=== PATIENT | male | born 1945 | race Caucasian/White ===

== ENCOUNTER 2022-09-30 09:40 | Emergency (ER) | payer OTHER ==
[~2022-09-30] VITALS: Ht 177.8 cm; Wt 86.2 kg
--- NOTE | 2022-09-30 09:44 | NUR ---
BIBA TO BED 6
[2022-09-30 09:45] VITALS: BP 118/66
--- NOTE | 2022-09-30 10:00 | NUR ---
76 y/o male alisa from [facility], pt was dropped off at [facility] for dialysis (unknown days, last done not done today). transport (personal care transport) dropped pt off at wrong facility, pt was left in wheelchair in the lobby, staff called [facility] stating pt may be altered. pt gcs 14, answers a&ox4. per [facility], pt baseline is slightly aggrivated and confused. pt normally goes to [facility]. facility requested to be transferred to [facility], [facility] denied pt states they need to go to closest facility. pt states he has 5/10 buttock pain. spoke with archana garcia from [facility] for report. pmh: thyroid disease, htn allergies: nka med: metoprolol ER, ativan, seroquel, levothyroxine
--- NOTE | 2022-09-30 10:08 | NUR ---
Patient noted to have existing wounds upon arrival to ER. Physician informed. pt c/o pain on buttocks 02/11, pt was turned to inspect area, pt has stage 1 ulcer on buttocks per md.
--- NOTE | 2022-09-30 10:10 | NUR ---
called report to Quentin DOE about clinical findings, pt will be [place] [facility] [place] [facility].
--- NOTE | 2022-09-30 10:18 | NUR ---
[facility] will fruit picker machine operator ETA 30 minutes
--- NOTE | 2022-09-30 10:40 | NUR ---
[facility] AT BEDSIDE FOR TX
[2022-09-30 10:46] VITALS: BP 118/66
--- NOTE | 2022-09-30 10:46 | NUR ---
Patient discharged with v/s stable. Written and verbal after care instructions given and explained. . [facility] TX PROVIDED to care home. All questions addressed prior to discharge. Advised to follow up with PMD. FACILITY AWARE OF PT DC/ETA.
== END 2022-09-30 10:44 ==
LOC: MED 09:40
DX: N18.6 End stage renal disease (principal); L89.159 Pressure ulcer of sacral region, unspecified stage; R41.82 Altered mental status, unspecified; R41.0 Disorientation, unspecified; I10 Essential (primary) hypertension; E03.9 Hypothyroidism, unspecified; Z99.2 Dependence on renal dialysis
CPT/HCPCS: 99283

== ENCOUNTER 2022-11-15 14:56 | Inpatient (IN) | payer OTHER ==
[~2022-11-15] VITALS: Ht 177.8 cm; Wt 69.6 kg
[~2022-11-15 14:56] MED LIST: FOLIC ACID 1 MG TAB PO ONE
[2022-11-15 15:03] VITALS: BP 151/86
--- NOTE | 2022-11-15 15:40 | NUR ---
76M BIBA from [facility] with c/o abnormal labs. EMS reports pt received and completed dialysis today. Blood exam showed low Hgb reading. Pt AOx1 to name, pt breathing normal and even and unlabored. Pt placed on bedside monitor, changed into gown, bed set to lowest position, side rails x2. Pt received dialysis Tues/Th/Sat. Dr. Moon made aware of pt upon arrival.
--- NOTE | 2022-11-15 15:45 | NUR ---
Lab at bedside.
[2022-11-15 16:16] LABS: BASOPHILS # (AUTO) 0.1 K/uL (0.00-0.22); BASOPHILS % (AUTO) 0.8 % (0.0-2.0); EOSINOPHILS # (AUTO) 0.1 K/uL (0-0.4); EOSINOPHILS % (AUTO) 1.5 % (0.0-4.0); LYMPHOCYTES # (AUTO) 1.4 K/uL (2.0-11.5); LYMPHOCYTES % (AUTO) 14.3 % (20.5-51.1); MEAN CORPUSCULAR HEMOGLOBIN 29 pg (27-31); MEAN CORPUSCULAR HGB CONC 32 g/dL (33-37); MEAN CORPUSCULAR VOLUME 90.4 fL (80-94); MONOCYTES # (AUTO) 0.5 K/uL (0.8-1.0); MONOCYTES % (AUTO) 5.4 % (1.7-9.3); NEUTROPHILS # (AUTO) 7.6 K/uL (1.8-7.7); PLATELET COUNT (AUTO) 333 K/uL (140-450); RED BLOOD CELL COUNT(AUTO) 2.32 MIL/uL (4.20-6.10); RED CELL DISTRIBUTION WIDTH 17.7 % (11.6-13.7); WHITE BLOOD COUNT (AUTO) 9.8 K/uL (4.8-10.8)
[2022-11-15 16:20] LABS: HEMOGLOBIN 6.7 g/dL (12.0-18.0)
[2022-11-15 16:35] LABS: ANION GAP 9.5 (8-16); CARBON DIOXIDE 32.4 mmol/L (21-32); CHLORIDE 98 mmol/L (98-107); GLUCOSE 89 mg/dL (74-106); POTASSIUM 3.9 mmol/L (3.5-5.1); SODIUM SERUM 136 mmol/L (136-145); UREA NITROGEN, BLOOD 22 mg/dL (7-18)
--- NOTE | 2022-11-15 17:30 | NUR ---
Verbal consent obtained from Ashley Adair (daughter and legal decisionmaker), via telephone, for blood transfusion. Alfredo Dumont RN confirmed consent.
[2022-11-15] MEDS ORDERED: FOLIC ACID 1 MG TAB PO ONE (18:05)
[2022-11-15] MEDS ORDERED: QUET25TA PO (18:14)
[2022-11-15] MEDS ORDERED: ATI.5 PO (18:14)
[2022-11-15] MEDS ORDERED: METO100T14 PO (18:14)
[2022-11-15] MEDS ORDERED: METO50TE2 PO (18:14)
[2022-11-15] MEDS ORDERED: SYN.05 PO (18:14)
--- NOTE | 2022-11-15 18:26 | NUR ---
Patient will be admitted to care of Dr. Mooney. Admited to TELE. Will go to room 106A. Belongings list completed. Report to NADER Whitmore.
[2022-11-15 18:40] VITALS: BP 160/89
--- NOTE | 2022-11-15 19:15 | NUR ---
RECEIVED PT FROM DAY RN FOR CONTINUITY OF CARE. PT ASLEEP, AROUSABLE TO NAME. ON ROOM AIR, BREATHING EVEN AND UNLABORED. IN ON L WRIST G20, SL. REDNESS ON L BUTTOCK NOTED. PICTURE TAKEN. MRSA SWAB DONE. ALL PRECAUTIONS IN PLACE. CALL LIGHT IN PLACE. CALL LIGHT WITHIN REACH. WILL CONTINUE TO MONITOR.
--- NOTE | 2022-11-15 21:30 | NUR ---
BLOOD TRANSFUSION STARTED. NO ACUTE REACTION NOTED. WILL CONTINUE TO MONITOR.
[2022-11-16] VITALS: BP 154/87
--- NOTE | 2022-11-16 00:30 | NUR ---
BLOOD TRANSFUSION DONE. NO REACTION NOTED. WILL CONTINUE TO MONITOR.
[2022-11-16 03:09] LABS: HEMOGLOBIN 7.8 g/dL (12.0-18.0)
[2022-11-16 03:10] LABS: BASOPHILS % (AUTO) 0.3 % (0.0-2.0); EOSINOPHILS # (AUTO) 0.1 K/uL (0-0.4); EOSINOPHILS % (AUTO) 1.4 % (0.0-4.0); HEMATOCRIT 24.2 % (36-52); HEMOGLOBIN 7.7 g/dL (12.0-18.0); LYMPHOCYTES # (AUTO) 1.3 K/uL (2.0-11.5); LYMPHOCYTES % (AUTO) 12.4 % (20.5-51.1); MEAN CORPUSCULAR HEMOGLOBIN 28 pg (27-31); MEAN CORPUSCULAR HGB CONC 32 g/dL (33-37); MEAN CORPUSCULAR VOLUME 88.9 fL (80-94); MONOCYTES # (AUTO) 0.7 K/uL (0.8-1.0); MONOCYTES % (AUTO) 6.7 % (1.7-9.3); NEUTROPHILS # (AUTO) 8.4 K/uL (1.8-7.7); NEUTROPHILS % (AUTO) 79.2 % (42.2-75.2); PLATELET COUNT (AUTO) 354 K/uL (140-450); RED BLOOD CELL COUNT(AUTO) 2.72 MIL/uL (4.20-6.10); RED CELL DISTRIBUTION WIDTH 17.1 % (11.6-13.7); WHITE BLOOD COUNT (AUTO) 10.6 K/uL (4.8-10.8)
[2022-11-16 04:00] VITALS: BP 148/77
[2022-11-16] MEDS: LEVOTHYROXINE 0.05 MG TAB PO SCH (06:18)
--- NOTE | 2022-11-16 06:55 | NUR ---
PT IS STABLE. NO ACUTE EVENTS THROUGHOUT THE NIGHT. NO S/SX OF DISTRESS NOTED. ALL NEEDS ATTENDED. NO PRECAUTIONS IN PLACE. CALL LIGHT WITHIN REACH. WILL ENDORSE TO DAY SHIFT NURSE.
--- NOTE | 2022-11-16 07:30 | NUR ---
RECIEVED PATIENT FROM SPECIAL WARFARE BOAT OPERATOR NURSE,PATIENT IS ALERT TIMES 1 AT BASELINE,VITALS ARE STABLE.ALL SAFETY MEASURES IN PLACE.POC DISCUSSED.WILL CONTINUE TO MONITOR.
[2022-11-16 07:52] LABS: BASOPHILS # (AUTO) 0.1 K/uL (0.00-0.22); BASOPHILS % (AUTO) 0.7 % (0.0-2.0); EOSINOPHILS # (AUTO) 0.1 K/uL (0-0.4); EOSINOPHILS % (AUTO) 1.2 % (0.0-4.0); HEMATOCRIT 24.5 % (36-52); HEMOGLOBIN 7.6 g/dL (12.0-18.0); LYMPHOCYTES # (AUTO) 1.7 K/uL (2.0-11.5); MEAN CORPUSCULAR HEMOGLOBIN 28 pg (27-31); MEAN CORPUSCULAR HGB CONC 31 g/dL (33-37); MEAN CORPUSCULAR VOLUME 89.4 fL (80-94); MONOCYTES # (AUTO) 0.8 K/uL (0.8-1.0); MONOCYTES % (AUTO) 7.1 % (1.7-9.3); NEUTROPHILS # (AUTO) 9.1 K/uL (1.8-7.7); PLATELET COUNT (AUTO) 372 K/uL (140-450); RED BLOOD CELL COUNT(AUTO) 2.74 MIL/uL (4.20-6.10); RED CELL DISTRIBUTION WIDTH 17.6 % (11.6-13.7); WHITE BLOOD COUNT (AUTO) 11.8 K/uL (4.8-10.8)
[2022-11-16 08:00] VITALS: BP 121/84
[2022-11-16] MEDS: LORazepam 0.5 MG TAB PO SCH ×2 (08:26→20:57)
[2022-11-16] MEDS: FERROUS SULFATE 300 MG/5 ML UDC PO SCH (08:26)
[2022-11-16 11:41] LABS: BASOPHILS # (AUTO) 0.1 K/uL (0.00-0.22); BASOPHILS % (AUTO) 0.5 % (0.0-2.0); EOSINOPHILS # (AUTO) 0.1 K/uL (0-0.4); EOSINOPHILS % (AUTO) 1.1 % (0.0-4.0); HEMATOCRIT 25.6 % (36-52); HEMOGLOBIN 8.1 g/dL (12.0-18.0); LYMPHOCYTES % (AUTO) 15.3 % (20.5-51.1); MEAN CORPUSCULAR HEMOGLOBIN 28 pg (27-31); MEAN CORPUSCULAR HGB CONC 32 g/dL (33-37); MEAN CORPUSCULAR VOLUME 88.7 fL (80-94); MONOCYTES % (AUTO) 7.6 % (1.7-9.3); NEUTROPHILS # (AUTO) 9.8 K/uL (1.8-7.7); NEUTROPHILS % (AUTO) 75.5 % (42.2-75.2); PLATELET COUNT (AUTO) 370 K/uL (140-450); RED BLOOD CELL COUNT(AUTO) 2.88 MIL/uL (4.20-6.10); RED CELL DISTRIBUTION WIDTH 17.3 % (11.6-13.7)
[2022-11-16 12:00] VITALS: BP 155/95
--- NOTE | 2022-11-16 12:41 | NUR ---
FREQUENT ROUNDS DONE,VISITORS AT BEDSIDE.ALL SAFETY MEASURES IN PLACE.NO SO DISTRESS NOTED.WILL CONTINUE TO MONITOR.
[2022-11-16] MEDS ORDERED: hydrALAZINE 25 MG TAB PO PRN (15:35)
[2022-11-16 15:48] LABS: BASOPHILS # (AUTO) 0.1 K/uL (0.00-0.22); BASOPHILS % (AUTO) 0.4 % (0.0-2.0); EOSINOPHILS # (AUTO) 0.2 K/uL (0-0.4); EOSINOPHILS % (AUTO) 1.3 % (0.0-4.0); HEMATOCRIT 22.2 % (36-52); HEMOGLOBIN 7.1 g/dL (12.0-18.0); LYMPHOCYTES # (AUTO) 1.5 K/uL (2.0-11.5); MEAN CORPUSCULAR HEMOGLOBIN 28 pg (27-31); MEAN CORPUSCULAR HGB CONC 32 g/dL (33-37); MEAN CORPUSCULAR VOLUME 88.1 fL (80-94); MONOCYTES # (AUTO) 0.8 K/uL (0.8-1.0); MONOCYTES % (AUTO) 7.1 % (1.7-9.3); NEUTROPHILS # (AUTO) 9.3 K/uL (1.8-7.7); NEUTROPHILS % (AUTO) 78.2 % (42.2-75.2); PLATELET COUNT (AUTO) 356 K/uL (140-450); RED BLOOD CELL COUNT(AUTO) 2.52 MIL/uL (4.20-6.10); WHITE BLOOD COUNT (AUTO) 11.9 K/uL (4.8-10.8)
[2022-11-16 16:00] VITALS: BP 164/103
[2022-11-16] MEDS ORDERED: LABETALOL 20 MG/4 ML VIAL IVP PRN (16:00)
--- NOTE | 2022-11-16 16:14 | NUR ---
NOTED HIGH SYSTOLIC BP OF 164/103.REPEAT BP VALUE IS 175/107.NOTIFIED MD AND MEDICATED WITH PRN BP MEDS.WILL REASSESS.MNURSS1
--- NOTE | 2022-11-16 19:09 | NUR ---
ENDORSED THE PATIENT TO EMPLOYMENT TRAINING SPECIALIST NURSE FOR CONTINUITY OF CARE.NO SIGNS OF DISTRESS NOTED.
[2022-11-16 19:58] LABS: BASOPHILS % (AUTO) 0.3 % (0.0-2.0); EOSINOPHILS # (AUTO) 0.2 K/uL (0-0.4); EOSINOPHILS % (AUTO) 1.4 % (0.0-4.0); HEMATOCRIT 22.4 % (36-52); HEMOGLOBIN 7.1 g/dL (12.0-18.0); LYMPHOCYTES # (AUTO) 1.4 K/uL (2.0-11.5); MEAN CORPUSCULAR HEMOGLOBIN 28 pg (27-31); MEAN CORPUSCULAR HGB CONC 32 g/dL (33-37); MEAN CORPUSCULAR VOLUME 88.5 fL (80-94); MONOCYTES # (AUTO) 0.9 K/uL (0.8-1.0); MONOCYTES % (AUTO) 7.4 % (1.7-9.3); NEUTROPHILS # (AUTO) 10.2 K/uL (1.8-7.7); NEUTROPHILS % (AUTO) 79.9 % (42.2-75.2); PLATELET COUNT (AUTO) 362 K/uL (140-450); RED BLOOD CELL COUNT(AUTO) 2.54 MIL/uL (4.20-6.10); RED CELL DISTRIBUTION WIDTH 16.8 % (11.6-13.7); WHITE BLOOD COUNT (AUTO) 12.7 K/uL (4.8-10.8)
[2022-11-16 20:00] VITALS: BP 134/69
--- NOTE | 2022-11-16 20:00 | NUR ---
RECEIVED PT FROM DAY RN FOR CONTINUITY OF CARE. PT awake, alert and oriented to name only. ON ROOM AIR, BREATHING EVEN AND UNLABORED.NO S/SX OF DISTRESS AT THIS MOMENT. IV ON L WRIST G20, SL. ALL PRECAUTIONS IN PLACE. CALL LIGHT IN PLACE. CALL LIGHT WITHIN REACH. WILL CONTINUE TO MONITOR.
[2022-11-16 20:19] LABS: HEMATOCRIT 22.2 % (36-52); HEMOGLOBIN 7.1 g/dL (12.0-18.0)
[2022-11-16] MEDS ORDERED: CRUSHER, PILL MC ONE (20:51)
[2022-11-16] MEDS: METOPROLOL SUCCINATE 50 MG TABER PO SCH (20:56)
[2022-11-16] MEDS: QUEtiapine FUMARATE 25 MG TAB PO SCH (20:57)
--- NOTE | 2022-11-16 21:00 | NUR ---
SCHEDULED MEDICATIONS GIVEN. NO ADVERSE DRUG REACTION NOTED.PT TOLERATED WELL. WILL CONTINUE TO MONITOR.
--- NOTE | 2022-11-16 23:43 | NUR ---
PT ASLEEP. NO S/SX OF DISTRESS. BREATHING EVEN AND UNLABORED. ALL PRECAUTIONS IN PLACE. CALL LIGHT WITHIN REACH. WILL CONTINUE TO MONITOR.
[2022-11-17] VITALS: BP 152/82
[2022-11-17 04:00] VITALS: BP 148/90
[2022-11-17 05:24] LABS: BASOPHILS % (AUTO) 0.2 % (0.0-2.0); EOSINOPHILS # (AUTO) 0.2 K/uL (0-0.4); EOSINOPHILS % (AUTO) 1.5 % (0.0-4.0); HEMATOCRIT 22.3 % (36-52); LYMPHOCYTES # (AUTO) 1.6 K/uL (2.0-11.5); LYMPHOCYTES % (AUTO) 13.1 % (20.5-51.1); MEAN CORPUSCULAR HEMOGLOBIN 28 pg (27-31); MEAN CORPUSCULAR HGB CONC 32 g/dL (33-37); MEAN CORPUSCULAR VOLUME 88.6 fL (80-94); MONOCYTES # (AUTO) 0.9 K/uL (0.8-1.0); MONOCYTES % (AUTO) 7.6 % (1.7-9.3); NEUTROPHILS # (AUTO) 9.1 K/uL (1.8-7.7); NEUTROPHILS % (AUTO) 77.6 % (42.2-75.2); PLATELET COUNT (AUTO) 360 K/uL (140-450); RED BLOOD CELL COUNT(AUTO) 2.51 MIL/uL (4.20-6.10); RED CELL DISTRIBUTION WIDTH 17.2 % (11.6-13.7); WHITE BLOOD COUNT (AUTO) 11.8 K/uL (4.8-10.8)
[2022-11-17] MEDS: LEVOTHYROXINE 0.05 MG TAB PO SCH (06:26)
[2022-11-17 08:00] VITALS: BP 155/98
--- NOTE | 2022-11-17 08:56 | NUR ---
PATIENT HAS BEEN SCREENED AND CATEGORIZED MODERATE NUTRITION RISK. PATIENT WILL BE SEEN WITHIN 3-5 DAYS OF ADMISSION. REVIEWED BY JANESSA LIU RD
[2022-11-17] MEDS ORDERED: EPOETIN ALFA-EPBX 10,000 UNITS/ML VIAL IV SCH (09:00)
--- NOTE | 2022-11-17 09:40 | NUR ---
WOUND CARE NOTE: SKIN ASSESSMENT DONE ON THIS PT ADMITTED WITH SKIN ALTERATION. POC DISCUSSED WITH PRIMARY NADER BAIRD. PER INFORMATION, PT IS RESTLESS AND NOT COOPERATE WITH CARE. PT.SKIN ASSESSED, PT IS ON/OFF RESTLESS ABLE TO FOLLOW DIRECTIONS WITH ASSISTANCE OF TWO PERSONS TO TURN AND REPOSITION. PT. SKIN DRY THIN AND EASILY TO TORN. SACRALCOCCYX SKIN THIN TO TORN WITH LOWER EDGE OF SACRAL AND BILATERAL LOWER BUTTOCKS NON-BLANCHABLE REDNESS ,IRREGULAR SHAPE 2X5CM. POC DISCUSSED WITH PRIMARY NADER BAIRD. PT. WITH LOW IVAN SCALE AT MODERATE TO HIGH RISK, CONTINUE TO FOLLOW PRESSURE INJURY PREVENTION INTERVENTIONS. -APPLY HYDRAGUARD TO TRUNK OF BODY, SACRALCOCCYX BID -APPLY FOAM DRESSING TO SACRALCOCCYX AND LOWER BUTTOCKS QD AND PRN IF SOILING. OFFLOAD AREA WITH PILLOW. -POSITIONING: TURN AND REPOSITION PATIENT Q 2H OR SOONER USE PILLOWS TO KEEP BONY PROMINENCES FROM DIRECT CONTACT WITH SURFACES USE REPOSITIONING WEDGES TO PROVIDE 30-DEGREE ANGLE FOR SIDE LYING POSITIONS OFFLOADING OR FOAM DRESSING TO ALL TUBING TO PREVENT MEDICAL DEVICES RELATED PRESSURE INJURY -RE-EVALUATING AND MANAGING INCONTINENCE MONITOR SKIN CONDITION DURING POSITION CHANGE DO NOT MASSAGE REDNESS, BONY PROMINENCES FREQUENT KAR-CARE AND PROVIDE BARRIER CREAMS PRN IF SOILING MOISTURE CONTROL BY OFFER BED ROBERTSON/URINAL /ABSORBENT PAD TO WICK AND HOLD MOISTURE KEEP SKIN DRY AND PROTECT FROM FRICTION -MANAGE FRICTION/SHEAR/MOBILITY KEEP HOB AT THE LOWEST LEVEL OF ELEVATION NO MORE THAN 30 DEGREE UNLESS OTHERWISE CONTRAINDICATED USE LIFT SHEET OR TRANSFER DEVICE TO MOVE PATIENT AND PREVENT LATERAL SHEER. PROTECT HEELS, ELBOWS BONY PROMINENCES WITH SKIN BERRIES OR FOAM DRESSING IF EXPOSED TO FRICTION OFFLOAD BILATERAL HEELS BY PLACING PILLOWS UNDER CALVES AT ALL TIMES, UNLESS OTHERWISE CONTRAINDICATED -PRESSURE REDISTRIBUTION SURFACE THERAPY ALFONSO ISOFLEX MATTRESS -NUTRITION: PLEASE FOLLOW RD RECOMMENDATIONS AND OFFER NUTRITION SUPPLEMENTS IF ORDERED. PLEASE CONTACT WOUND CARE NURSE FOR ANY QUESTION AND CHANGE OF WOUND CONDITION.
[2022-11-17] MEDS: PANTOPRAZOLE 40 MG INJ VIAL IVP SCH (09:43)
[2022-11-17] MEDS: LORazepam 0.5 MG TAB PO SCH ×2 (09:47→20:14)
[2022-11-17] MEDS: FERROUS SULFATE 300 MG/5 ML UDC PO SCH (09:48)
[2022-11-17 12:00] VITALS: BP 157/101
[2022-11-17 16:00] VITALS: BP 158/89
--- NOTE | 2022-11-17 16:29 | NUR ---
DC PLANNING ASSESSMENT COMPLETE SEE ASSESSMENT FOR DETAILS TENTATIVE DC PLAN IS FOR PT TO RETURN TO [facility] FOR SKILLED CARE, ONCE MEDICALLY STABLE. Addendum: 11/17/22 at 1629 by Arash PRAKASH Amended: Links added.
[2022-11-17] MEDS: SENNA 8.6 MG TAB PO SCH (17:06)
--- NOTE | 2022-11-17 19:27 | NUR ---
RECEIVED PT IN ASLEEP, EASILY AROUSABLE BY VERBAL STIMULI. NO S/SX OF PAIN NOR DISCOMFORT. NO ACUTE RESPIRATORY DISTRESS. SKIN WARM AND DRY TO TOUCH. SAFETY PRECAUTION IN PLACE, CALL LIGHT IN REACH.
[2022-11-17 19:53] LABS: BASOPHILS # (AUTO) 0.1 K/uL (0.00-0.22); BASOPHILS % (AUTO) 0.7 % (0.0-2.0); EOSINOPHILS # (AUTO) 0.1 K/uL (0-0.4); HEMATOCRIT 21.7 % (36-52); LYMPHOCYTES # (AUTO) 1.7 K/uL (2.0-11.5); LYMPHOCYTES % (AUTO) 13.4 % (20.5-51.1); MEAN CORPUSCULAR HEMOGLOBIN 29 pg (27-31); MEAN CORPUSCULAR HGB CONC 32 g/dL (33-37); MEAN CORPUSCULAR VOLUME 88.3 fL (80-94); MONOCYTES # (AUTO) 0.8 K/uL (0.8-1.0); MONOCYTES % (AUTO) 6.5 % (1.7-9.3); NEUTROPHILS # (AUTO) 9.9 K/uL (1.8-7.7); NEUTROPHILS % (AUTO) 78.4 % (42.2-75.2); PLATELET COUNT (AUTO) 353 K/uL (140-450); RED BLOOD CELL COUNT(AUTO) 2.45 MIL/uL (4.20-6.10); RED CELL DISTRIBUTION WIDTH 16.7 % (11.6-13.7); WHITE BLOOD COUNT (AUTO) 12.7 K/uL (4.8-10.8)
[2022-11-17 20:00] VITALS: BP 140/79
[2022-11-17] MEDS: QUEtiapine FUMARATE 25 MG TAB PO SCH (20:14)
[2022-11-17] MEDS: METOPROLOL SUCCINATE 50 MG TABER PO SCH (20:14)
--- NOTE | 2022-11-17 20:35 | NUR ---
SPOKE WITH DAUGHTER LESLIE, GAVE CONSENT FOR HD , 2NR RN WITNESSED BY YASMIN.
--- NOTE | 2022-11-17 21:02 | NUR ---
SPOKE WITH [facility] EMERGENCY MEDICINE NURSE PRACTITIONER, MADE AWARE OF HD ORDER FOR AM.
--- NOTE | 2022-11-17 22:00 | NUR ---
REPOSITIONED PATIENT. HEAD OF THE BED ELEVATED. CALL LIGHT IN REACH.
[2022-11-18] VITALS: BP 142/89
--- NOTE | 2022-11-18 01:30 | NUR ---
PATIENT IS ASLEEP. NO S/SX OF DISTRESS. CALL LIGHT IN REACH.
[2022-11-18 04:00] VITALS: BP 159/86
[2022-11-18] MEDS: LEVOTHYROXINE 0.05 MG TAB PO SCH (05:38)
--- NOTE | 2022-11-18 05:45 | NUR ---
AM CARE RENDERED. MADE COMFORTABLE IN BED. CALL LIGHT PLACED WITHIN REACH.
--- NOTE | 2022-11-18 06:18 | NUR ---
PATIENT IS ASLEEP. NO DISTRESS NOTED. ALL NEEDS ATTENDED TO. SAFETY PRECAUTIONS MAINTAINED DURING THE SHIFT, CALL LIGHT REMAINS WITHIN REACH.
--- NOTE | 2022-11-18 06:18 | NUR ---
PATIENT IS ASLEEP. NO DISTRESS NOTED. ALL NEEDS ATTENDED TO. SAFETY PRECAUTIONS MAINTAINED DURING THE SHIFT, CALL LIGHT REMAINS WITHIN REACH.
--- NOTE | 2022-11-18 07:30 | NUR ---
RECEIVED REPORT FROM LIVERY CAR DRIVER NURSE FOR CONTINUITY OF CARE, POC DISCUSSED. PT IS ASLEEP IN BED WITH CHEST RISING AND FALLING EVEN AND UNLABORED. PT ON RA, ON TELE SHOWING SINUS TACH. ALL SAFETY MEASURES IN PLACE, CALL LIGHT WITHIN REACH. WILL CONTINUE TO MONITOR.
[2022-11-18] MEDS ORDERED: INSULIN LISPRO SLIDING SCALE 100 UNITS/ML VIAL SUBQ PRN (07:50)
[2022-11-18] MEDS ORDERED: DEXTROSE 50% 50 ML SYR IVP PRN (07:50)
[2022-11-18 08:00] VITALS: BP 148/93
[2022-11-18] MEDS: PANTOPRAZOLE 40 MG INJ VIAL IVP SCH (08:21)
[2022-11-18] MEDS: NIFEdipine 30 MG TABER PO SCH (08:21)
[2022-11-18] MEDS: LORazepam 0.5 MG TAB PO SCH ×2 (08:21→20:13)
[2022-11-18] MEDS: FERROUS SULFATE 300 MG/5 ML UDC PO SCH (08:26)
[2022-11-18] MEDS: SENNA 8.6 MG TAB PO SCH ×3 (08:28→16:55)
--- NOTE | 2022-11-18 09:00 | NUR ---
SHERIF MEDICATION ADMINISTERED PER MD ORDER, PT TOLERATED ADMINISTRATION. PT A&OX1, ABLE TO OPEN EYES UPON REQUEST. CLEAR LUNG SOUNDS ON RA, ACTIVE BOWEL SOUNDS, +1 EDEMA. CLOSED PRESSURE ULCER ON SACRAL. ALL SAFETY MEASURES IN PLACE, CALL LIGHT WITHIN REACH. WILL CONTINUE TO MONITOR.
[2022-11-18 09:18] LABS: BASOPHILS % (AUTO) 0.4 % (0.0-2.0); EOSINOPHILS # (AUTO) 0.2 K/uL (0-0.4); EOSINOPHILS % (AUTO) 1.9 % (0.0-4.0); HEMATOCRIT 21.8 % (36-52); LYMPHOCYTES # (AUTO) 1.5 K/uL (2.0-11.5); LYMPHOCYTES % (AUTO) 11.8 % (20.5-51.1); MEAN CORPUSCULAR HEMOGLOBIN 28 pg (27-31); MEAN CORPUSCULAR HGB CONC 31 g/dL (33-37); MEAN CORPUSCULAR VOLUME 88.6 fL (80-94); MONOCYTES # (AUTO) 0.9 K/uL (0.8-1.0); MONOCYTES % (AUTO) 7.4 % (1.7-9.3); NEUTROPHILS # (AUTO) 9.9 K/uL (1.8-7.7); NEUTROPHILS % (AUTO) 78.5 % (42.2-75.2); PLATELET COUNT (AUTO) 348 K/uL (140-450); RED BLOOD CELL COUNT(AUTO) 2.47 MIL/uL (4.20-6.10); RED CELL DISTRIBUTION WIDTH 16.7 % (11.6-13.7); WHITE BLOOD COUNT (AUTO) 12.7 K/uL (4.8-10.8)
[2022-11-18 09:22] LABS: HEMOGLOBIN 6.9 g/dL (12.0-18.0)
[2022-11-18 10:00] LABS: CHLORIDE 99 mmol/L (98-107); GLUCOSE 77 mg/dL (74-106); POTASSIUM 4.4 mmol/L (3.5-5.1); SODIUM SERUM 136 mmol/L (136-145)
[2022-11-18 10:06] LABS: ANION GAP 14.7 (8-16); CARBON DIOXIDE 26.7 mmol/L (21-32)
[2022-11-18 10:22] LABS: CREATININE 4.9 mg/dL (0.6-1.3); UREA NITROGEN, BLOOD 62 mg/dL (7-18)
--- NOTE | 2022-11-18 11:05 | NUR ---
UPDATE PROVIDED TO PTS DAUGHTER, KRYSTAL. ALL QUESTIONS ANSWERED.
[2022-11-18] MEDS: BLOOD GLUCOSE MONITORING 1 DEV DEV FS SCH ×3 (11:19→20:17)
--- NOTE | 2022-11-18 11:19 | NUR ---
BLOOD GLUCOSE IS 97, NO INSULIN COVERAGE NEEDED PER SLIDING SCALE
--- NOTE | 2022-11-18 11:30 | NUR ---
CALLED LAB TO RECEIVE BLOOD FOR BLOOD TRANSFUSION. ASSISTANT EDITOR STATES THEY ARE STILL WORKING ON IT. HD NURSE AT BEDSIDE STARTING ORDERED DIALYSIS SESSION. PT STABLE
[2022-11-18] MEDS: SODIUM FERRIC GLUCONATE 125 MG in NACL 0.9% 100 ML IV SCH ×2 (11:41→15:13)
--- NOTE | 2022-11-18 11:49 | NUR ---
SHERIF IV MEDICATION BEING HELD DUE TO HD GOING ON , PER HD NURSE IT WILL NEED TO BE GIVEN AFTER DIALYSIS
--- NOTE | 2022-11-18 13:00 | NUR ---
PT SWATS AT NURSE WHILE TRYING TO GIVE PO MEDICATION, EYES CLOSED, LETHARGIC.
--- NOTE | 2022-11-18 14:30 | NUR ---
PT RECEIVING 1 UNIT THROUGH DIALYSIS, PT STABLE. ALL SAFETY MEASURES IN PLACE, CALL LIGHT WITHIN REACH. WILL CONTINUE TO MONITOR
--- NOTE | 2022-11-18 15:09 | NUR ---
CALLED LAB IN REGARDS TO THE SECOND ORDER PRBC, BLOOD NOT READY. EDUCATIONAL MANAGER NOTIFIED, WILL PLACE H&H DRAW 4HOURS AFTER SECOND TRANSFUSION.
--- NOTE | 2022-11-18 16:30 | NUR ---
CONDOMN CATH PLACED AND SECURED PER DR COSTELLO ORDER FOR 24 HOUR URINE COLLECTION. URINE COLLECTION CONTAINER OBTAINED FROM LAB, PLACED IN ICE BUCKET TO KEEP COOL PER POLICY. 24 HR URINE COLLECTION WILL BE COMPLETED AT 1630 11/19/22. AT 1630, SECOND BLOOD TRANSFUSION STARTED. PRE TRANSFUSION VSS. SECOND NURSE CHECK WITH ADZE RN. PT STABLE. RN AT BEDSIDE FOR FIRST 15 MINUTES. ALL SAFETY MEASURES IN PLACE. WILL CONTINUE TO MONITOR.
--- NOTE | 2022-11-18 16:34 | NUR ---
11/18/22 RD INITIAL ASSESSMENT COMPLETED PLEASE REFER TO NUTRITION ASSESSMENT UNDER CARE ACTIVITY FOR ESTIMATED NUTRITIONAL NEEDS. 1. CONTINUE CARDIAC, RENAL DIET TOLERATED 2. RECOMMEND NEPRO BID TO OPTIMIZE NUTRITIONAL NEEDS AND VEGA BID FOR LOW IVAN SUPPORT -NEPRO BID PROVIDES 840 KCAL AND 38 GM PROTEIN DAILY -VEGA BID PROVIDES 180 KCAL AND [address] TO FOLLOW-UP 3-5 DAYS, MODERATE RISK REVIEWED BY JANESSA LIU RD
--- NOTE | 2022-11-18 16:45 | NUR ---
15 MINUTES INTRA TRANSFUSION, VSS
--- NOTE | 2022-11-18 18:32 | NUR ---
PT STILL RECEIVING BLOOD TRANSFUSION, VSS, IV PATENT AND INTACT. ALL SAFETY MEASURES IN PLACE, CALL LIGHT WITHIN REACH. WILL CONTINUE TO MONITOR.
[2022-11-18 18:44] LABS: FERRITIN 1066 ng/mL (30 - 400)
--- NOTE | 2022-11-18 19:30 | NUR ---
RECEIVED PT IN BED AWAKE. BLOOD TRANSFUSION DONE, VITAL SIGNS STABLE, NO ADVERSE REACTION NOTED. NO S/SX OF PAIN NOR DISCOMFORT. NO ACUTE RESPIRATORY DISTRESS. SKIN WARM AND DRY TO TOUCH. HAD A BOWEL MOVEMENT, COLLECTED A STOOL FOR OB ORDERED AND SENT TO THE LAB. SAFETY PRECAUTION IN PLACE, CALL LIGHT IN REACH.
[2022-11-18 20:00] VITALS: BP 143/75
[2022-11-18] MEDS: METOPROLOL SUCCINATE 50 MG TABER PO SCH (20:13)
[2022-11-18] MEDS: QUEtiapine FUMARATE 25 MG TAB PO SCH (20:17)
--- NOTE | 2022-11-18 22:15 | NUR ---
REPOSITIONED PATIENT. HEAD OF THE BED ELEVATED.
--- NOTE | 2022-11-19 | NUR ---
PATIENT IS ASLEEP. NO S/SX OF PAIN NOR DISCOMFORT. CALL LIGHT IN REACH.
[2022-11-19 00:23] LABS: HEMATOCRIT 28.8 % (36-52); HEMOGLOBIN 9.3 g/dL (12.0-18.0)
[2022-11-19 04:00] VITALS: BP 140/91
[2022-11-19] MEDS: LEVOTHYROXINE 0.05 MG TAB PO SCH (05:38)
--- NOTE | 2022-11-19 06:10 | NUR ---
ONGOING 24 HR URINE COLLECTION. PT ASLEEP. ALL NEEDS ATTENDED TO. NO DISTRESS NOTED. SAFETY PRECAUTIONS MAINTAINED DURING THE SHIFT, CALL LIGHT IN REACH.
[2022-11-19] MEDS: BLOOD GLUCOSE MONITORING 1 DEV DEV FS SCH ×2 (06:30→12:20)
--- NOTE | 2022-11-19 07:30 | NUR ---
RECEIVED REPORT FROM DETECTIVE SUPERVISOR NURSE, POC DISCUSSED. ALL NIGHT EVENTS DISCUSSED. PT RESTING IN BED WITH CHEST RISING AND FALLING EVEN AND UNLABORED. DETECTIVE SUPERVISOR OBTAINED 75CC URINE FOR 24 HR URINE COLLECTION. CONTAINER IN ICE TO KEEP COOL. ALL SAFETY MEASURES IN PLACE, CALL LIGHT WITHIN REACH. WILL CONTINUE TO MONITOR.
[2022-11-19] MEDS: SENNA 8.6 MG TAB PO SCH ×2 (08:29→12:39)
[2022-11-19] MEDS: LORazepam 0.5 MG TAB PO SCH (08:29)
[2022-11-19] MEDS: NIFEdipine 30 MG TABER PO SCH (08:29)
[2022-11-19] MEDS: PANTOPRAZOLE 40 MG INJ VIAL IVP SCH (08:30)
--- NOTE | 2022-11-19 09:00 | NUR ---
SHERIF MEDICATION ADMINISTERED PER MD ORDER, PT TOLERATED ADMINISTRATION. PT MORE AWAKE THIS MORNING THAN 11/18/22. ALL SAFETY MEASURES IN PLACE, CALL LIGHT WITHIN REACH. WILL CONTINUE TO MONITOR.
[2022-11-19 09:34] LABS: MAGNESIUM 1.7 mg/dL (1.8-2.4); PHOSPHORUS 3.3 mg/dL (2.5-4.9)
[2022-11-19 09:49] LABS: BASOPHILS % (AUTO) 0.3 % (0.0-2.0); EOSINOPHILS # (AUTO) 0.2 K/uL (0-0.4); EOSINOPHILS % (AUTO) 1.6 % (0.0-4.0); HEMATOCRIT 28.9 % (36-52); HEMOGLOBIN 9.3 g/dL (12.0-18.0); LYMPHOCYTES # (AUTO) 1.3 K/uL (2.0-11.5); LYMPHOCYTES % (AUTO) 10.2 % (20.5-51.1); MEAN CORPUSCULAR HEMOGLOBIN 28 pg (27-31); MEAN CORPUSCULAR HGB CONC 32 g/dL (33-37); MONOCYTES # (AUTO) 0.8 K/uL (0.8-1.0); MONOCYTES % (AUTO) 6.3 % (1.7-9.3); NEUTROPHILS % (AUTO) 81.6 % (42.2-75.2); PLATELET COUNT (AUTO) 338 K/uL (140-450); RED BLOOD CELL COUNT(AUTO) 3.28 MIL/uL (4.20-6.10); RED CELL DISTRIBUTION WIDTH 16.8 % (11.6-13.7); WHITE BLOOD COUNT (AUTO) 12.2 K/uL (4.8-10.8)
[2022-11-19 10:04] LABS: ANION GAP 14.6 (8-16); CARBON DIOXIDE 27.2 mmol/L (21-32); CHLORIDE 101 mmol/L (98-107); CREATININE 3.8 mg/dL (0.6-1.3); GLUCOSE 80 mg/dL (74-106); POTASSIUM 3.8 mmol/L (3.5-5.1); SODIUM SERUM 139 mmol/L (136-145); UREA NITROGEN, BLOOD 40 mg/dL (7-18)
[2022-11-19 12:00] VITALS: BP 151/94
[2022-11-19] MEDS: SODIUM FERRIC GLUCONATE 125 MG in NACL 0.9% 100 ML IV SCH (12:20)
--- NOTE | 2022-11-19 12:24 | NUR ---
BLOOD GLUCOSE 83, NO INSULIN COVERAGE NEEDED. SHERIF IV MEDICATION ADMINISTERED, IV PATENT AND INTACT. PT YELLING REFUSING TO TAKE PO MEDICATION. BROTHER AT BEDSIDE, ALL QUESTIONS ANSWERED. ALL SAFETY MEASURES IN PLACE, CALL LIGHT WITHIN REACH. WILL CONTINUE TO MONITOR.
--- NOTE | 2022-11-19 13:57 | NUR ---
PER DR COSTELLO NO LONGER NEEDING TO DO 24 HOUR URINE COLLECTION
--- NOTE | 2022-11-19 13:58 | NUR ---
PT HAS BEEN READJUSTED IN BED, PT YELLING SAYING HES UNCOMFORTABLE. AFTER REPOSITIONING PT STATES HE IS FEELING BETTER
--- NOTE | 2022-11-19 14:15 | NUR ---
CALLED [facility] REGARDING PT DISCHARGE, STATED SHE WILL FAX AND CALL BACK WITH MORE INFORMATION
--- NOTE | 2022-11-19 15:06 | NUR ---
DC PLANNING: PATIENT HAS A DC ORDER TO RETURN TO [facility] . CALLED [facility] FAXED ALL PAPER WORK PER BONIFACIO PATIENT CAN GO TO ROOM 39B # TO GIVE REPORT [phone] [facility] WILL ARRANGE TRANSPORT ROUTE RETURNER TIME 4PM. CM TO FOLLOW
--- NOTE | 2022-11-19 15:50 | NUR ---
ALL DISCHARGE PAPERWORK COMPLETED, CONDMN CATH REMOVED, IV REMOVED, ID BANDS REMOVED. PT CLEANED WITH NEW WOUND DRESSING APPLIED. ATTEMPTED TO TAKE PICTURE HOWEVER CAMERA NOT WORKING. ALL BELONGINGS IN POSSESSION, VSS. CALLED [facility] AND GAVE FULL REPORT TO [facility], ALL QUESTIONS ANSWERED. POC DISCUSSED. CALLED NIGEL, DAUGHTER AND UPDATED HER ON PT BEING DISCHARGED BACK TO [facility] AND ROOM NUMBER [id number]. PT STABLE
[2022-11-20] MEDS ORDERED: EPOETIN ALFA-EPBX 10,000 UNITS/ML VIAL IV SCH (09:00)
== END 2022-11-19 15:50 | DRG 682 ==
LOC: MED 14:56 → MTU 17:50
PROVIDERS: ADMIT Family Medicine; ATTEND Family Medicine
PROC: 30233N1 Transfusion of Nonautologous Red Blood Cells into Peripheral Vein, Percutaneous Approach (ICD-10-PCS; principal; 2022-11-15)
PROC: 5A1D70Z Performance of Urinary Filtration, Intermittent, Less than 6 Hours Per Day (ICD-10-PCS; 2022-11-18)
DX: I12.0 Hypertensive chronic kidney disease with stage 5 chronic kidney disease or end stage renal disease (principal); N17.0 Acute kidney failure with tubular necrosis; N18.6 End stage renal disease; E11.22 Type 2 diabetes mellitus with diabetic chronic kidney disease; D63.1 Anemia in chronic kidney disease; Z99.2 Dependence on renal dialysis; Z20.822 Contact with and (suspected) exposure to COVID-19; F03.90 Unspecified dementia, unspecified severity, without behavioral disturbance, psychotic disturbance, mood disturbance, and anxiety; E83.51 Hypocalcemia; Z93.1 Gastrostomy status; Z79.899 Other long term (current) drug therapy
CPT/HCPCS: 36415; 36430; 80048; 82272; 82607; 82728; 82746; 82948; 83540; 83735; 84100; 85018; 85025; 86886; 86900; 86901; 86920; 87081; 99285; C9113; J2916; J3490; P9016; Q5106